=== PATIENT | female | born 1970 | race Caucasian/White ===

== ENCOUNTER 2025-01-28 15:00 | Emergency (ER) | payer BC, SELFPAY ==
[2025-01-28 16:07] VITALS: BP 131/85; PULSE 79; RESP 16; TEMP 36.9; O2SAT 99
--- NOTE | 2025-01-28 16:50 | PD.EDFMALE ---
ED Female Urogenital RME/HPI General Chief complaint: General Adult/Misc Complain Stated complaint: UTI Time Seen by Provider: 01/28/25 16:23 Arrival date/time: 01/28/25 15:00 RME / HPI RME / HPI Narrative: DR. SAMAYOA MAIN ED EVALUATION: 54-year-old female presents to the Emergency Department with complaint of dysuria described as painful, stabbing pain during urination. She denies fevers. She also reports chronic diarrhea. Patient has an allergy to codeine. Related Data Allergies Allergy/AdvReac Type Severity Reaction Status Date / Time codeine Allergy Intermediate Hives Verified 01/28/25 15:03 Review of Systems Review of Systems Systems Reviewed: All systems reviewed, normal except as documented Past Medical History Social History SMOKING STATUS: Never smoker SUBSTANCE USE: does not use ALCOHOL: Never ED Exam Narrative Physical exam: GENERAL APPEARANCE: alert and oriented x 4, well-developed, well-nourished VITALS: All vitals were reviewed and the pulse ox is 99% on room air, which is normal according to my interpretation. HEENT: Normocephalic, atraumatic; pupils equal, round, reactive to light; EOMI; mucous membranes pink, moist; oropharynx clear NECK: Supple LUNGS: CTABL; no wheezes, no rales, no rhonchi HEART: Regular rate, regular rhythm; normal S1, S2; no murmurs ABDOMEN: non distended; normal BS; soft, no tenderness, no guarding, no rebound; no masses, no organomegaly, no hernia BACK: bilateral CVA tenderness, greater on the left EXTREMITIES: atraumatic; no edema NEUROLOGIC: awake; alert and oriented x4; cranial nerves II-XII grossly intact; no focal sensory or motor deficits PSYCHIATRIC: appropriate mood and affect SKIN: warm, dry, normal color; no rashes Course Quality Measures none Orders Category Date Time Status CBC Stat Lab 01/28/25 17:05 Completed CMP [Comprehensive Metabolic Panel] Stat Lab 01/28/25 17:05 Completed Lactate (Lactic Acid) Stat Lab 01/28/25 17:05 Completed UA, C/S IF [Urinalysis, C/S if Indicated] Stat Lab 01/28/25 16:45 Completed HYDROcodone*/APAP 5/325 [[place] 5/325] Med 01/28/25 16:37 Discontinued 1 tab PO X1 ONE Vital Signs Vital signs: Vital Signs Temperature 98.5 F 01/28/25 16:07 Pulse Rate 79 01/28/25 16:07 Respiratory Rate 16 01/28/25 16:07 Blood Pressure 131/85 H 01/28/25 16:07 Pulse Oximetry (%) 99 01/28/25 16:07 Oxygen Delivery Method Room Air 01/28/25 16:07 Urogenital - Female MDM Narrative MDM Narrative:: ILupe am scribing for and in the presence of Dr. Samayoa. Patient data External records reviewed:: None Clinical information provided by:: patient Social determinants that could affect healthcare access:: none Patient has the following chronic illnesses:: allergy to codeine How is presenting disease/condition affected by chronic disease/condition?: no chronic disease Evaluation data The following diagnostics were reviewed and interpreted by me:: lab results Lab and/or radiology exams considered but not ordered:: none Interpretation Summary: no acute findings, patient will be discharged Medications / Prescriptions Medications or Prescriptions considered but not ordered:: none Medication administrations:: Medication Administration History Discontinued Medications Hydrocodone Bitart/Acetaminophen (Hydrocodone/Apap 5/325 Tablet) 1 tab PO X1 ONE Stop: 01/28/25 16:38 Last Admin: 01/28/25 17:00 Dose: 1 tab Documented By: FLORENTIN see above Consultations Consultation(s) initiated? (list below): No Diagnosis Urogenital Female Differential Diagnosis: other (Pyelonephritis, complicated urinary tract infection, and nephrolithiasis.) Most likely diagnosis given after review of the tests above:: See clinical impression below. Admission Indicated Admission indicated?: not indicated Admission Request Was there a request for admission?: No Disposition Plan Disposition Plan: Discharge Discharge Attestation Discharge Attestation: The patient and all family members were given an opportunity to ask questions and understood the discharge instructions. Discharge instructions specifically effects, indications for sooner follow up or return to the emergency department, and the expected course of current diagnosis. Patient condition: Stable Discharge Plan Plan Patient Disposition: HOME (Self Care) Prescriptions/Referrals Referrals: Malorie Berger FNP [Primary Care Provider] - In 1 week Problem List Clinical Impression: Bilateral flank pain, Dysuria Patient/Caregiver Discharge Instructions Education Materials: ED Abdominal Pain Unkn Cause Fem, ED Flank Pain, Uncertain Cause Print Language: Peruvian Stand Alone Forms: [employer]., Patient Portal Info Letter
[2025-01-28] MEDS: HYDROcodone/APAP 5/325 TABLET 1 TAB PO (17:00)
[2025-01-28 17:13] LABS: Lactate (Lactic Acid) 0.6 mMol/L (0.4-2.0)
[2025-01-28 17:14] LABS: Collection Type, Urine Clean Catch
[2025-01-28 17:16] LABS: Basophils # (Auto) 0.0 Thou/mm3 (0.0-0.2); Basophils % (Auto) 0 % (0-2.5); Eosinophils # (Auto) 0.2 Thou/mm3 (0.0-0.5); Eosinophils % (Auto) 3 % (0-10); Hematocrit 41.2 % (36.0-46.0); Hemoglobin 13.8 g/dL (12.0-16.0); Immature Granulocytes Auto 0.02 Thou/mm3 (0.00-0.00); Lymphocytes # (Auto) 2.9 Thou/mm3 (1.0-4.8); Lymphocytes % (Auto) 32 % (10-50); Mean Corpuscular HGB Conc 33.5 g/dl (31.0-37.0); Mean Corpuscular Hemoglobin 27.7 pg (25.0-35.0); Mean Corpuscular Volume 83 fL (80-100); Monocytes # (Auto) 0.6 Thou/mm3 (0.0-0.8); Monocytes % (Auto) 7 % (0-12); Neutrophils # (Auto) 5.5 Thou/mm3 (1.8-7.7); Neutrophils % (Auto) 59 % (37-80); Nucleated Red Blood Cell # 0.00 Thou/mm3 (0.00-0.00); Nucleated Red Blood Cell % 0 /100 WBC (0); Platelet Count 229 Thou/mm3 (140-440); RDW Standard Deviation 38.5 fL (36.4-46.3); Red Blood Count 4.99 Miln/mm3 (4.00-5.20); White Blood Count 9.3 Thou/mm3 (3.6-11.0)
[2025-01-28 17:35] LABS: Amorphous Crystals,Urine Present (Absent); Bilirubin,Urine 2+ (Negative); Blood,Urine Trace (Negative); Color,Urine Drk-Orange (Lt Yel-Yel); Glucose, Urine Negative (Negative); Ketones,Urine Negative (Negative); Leukocyte Esterase,Urine Negative (Negative); PH,Urine 5.5 (5.0-7.0); Protein,Urine Trace (Neg - Trace); RBC,Urine 9 /hpf (0-3); Specific Gravity,Urine 1.016 (1.001-1.035); Squamous Epithelial Cell,Urine 6 /hpf (0-5); Urobilinogen,Urine 4.0 mg/dL (0.0-1.0); WBC,Urine 4 /hpf (0-5)
[2025-01-28 17:36] LABS: Clarity,Urine Hazy (Clear/Hazy); Culture Indicated,Urine Not Indicated; Nitrite,Urine Negative (Negative)
[2025-01-28 17:39] LABS: Alanine Aminotransferase 17 U/L (10-49); Albumin, Serum 4.5 gm/dL (3.5-5.0); Albumin/Globulin Ratio 2.0 (1.2-2.2); Alkaline Phosphatase 66 U/L (46-116); Anion Gap 9 (7-16); Aspartate Amino Transferase 15 U/L (0-34); BUN/Creatinine Ratio 12 Ratio (12-20); Bilirubin,Total 1.1 mg/dL (0.3-1.2); Blood Urea Nitrogen 12 mg/dL (9-23); Calcium 10.1 mg/dL (8.3-10.6); Calcium (Corrected) 10.1 mg/dL (8.5-10.1); Carbon Dioxide 27.2 mMol/L (20.0-31.0); Chloride 105 mMol/L (98-107); Creatinine (Component) 1.0 mg/dL (0.6-1.3); Estimated Creatinine Clearance 77.4 mL/min (>60); Globulin 2.3 gm/dL (2.3-3.5); Glucose 99 mg/dL (74-106); Osmolality,Calculated 280 (275-295); Potassium 3.9 mMol/L (3.4-5.1); Sodium 141 mMol/L (136-145); Total Protein 6.8 gm/dL (5.7-8.2); eGFR > 60 See Note
--- NOTE | 2025-01-28 18:39 | PD.EDADDENDU ---
Emergency Room Addendum Addendum Narrative: 1800: Care assumed from Dr. Samayoa, the previous shift emergency physician. Past medical, surgical, social and family history reviewed. Vitals and home medications reviewed. Results and treatment plan discussed. I will assume the care of the patient at this time and will follow the patient. Please refer to the emergency department record for history and examination from initial visit. 54yo female with hx kidney stone presenting with bilateral flank pain, urinary frequency, and urgency with suspected UTI. UA however without evidence of bacteria or pyuria, but there is evidence of blood and crystals. Informal bedside US without hydronephrosis. Suspect likely small kidney stone. Will defer on further imaging given risks versus benefit ratio of radiation at this time. Will discharge home on narcotic analgesics, anti-emetic, and consider Flomax.
== END 2025-01-28 20:30 | disposition home or self-care (01) ==
PROVIDERS: Emergency Medicine; Emergency Provider Emergency Medicine; PCP Nurse Practitioner
DX: R30.0 Dysuria (principal); R10.9 Unspecified abdominal pain; Z88.5 Allergy status to narcotic agent
CPT/HCPCS: 36415; 80053; 81001; 83605; 85025; 99283; A9270